=== PATIENT | female | born 1970 ===

== ENCOUNTER 2019-01-16 07:56 | Day surgery (SDC) | payer OTHER | END 2019-01-16 17:14 | disposition home or self-care (01) | LOC: CIR.AMB 07:56 | DX: S52.532A Colles' fracture of left radius, initial encounter for closed fracture (principal); T84.89XA Other specified complication of internal orthopedic prosthetic devices, implants and grafts, initial encounter; M65.842 Other synovitis and tenosynovitis, left hand ==

== ENCOUNTER 2020-01-14 07:56 | Outpatient (CLI) | payer OTHER | END 2020-01-14 08:12 | disposition home or self-care (01) | LOC: MRI 07:56 | PROVIDERS: ATTEND Otolaryngology | DX: H90.42 Sensorineural hearing loss, unilateral, left ear, with unrestricted hearing on the contralateral side (principal) | CPT/HCPCS: 70553 ==

== ENCOUNTER 2020-09-08 07:26 | Outpatient (CLI) | payer OTHER | END 2020-09-08 07:28 | disposition home or self-care (01) | LOC: SONOGRAMA 07:26 | PROVIDERS: ATTEND Specialist | DX: Q44.6 Cystic disease of liver (principal); N20.0 Calculus of kidney ==

== ENCOUNTER 2020-09-08 09:40 | Outpatient (CLI) | payer OTHER | END 2020-09-08 09:51 | disposition home or self-care (01) | LOC: LAB 09:40 | PROVIDERS: ATTEND Specialist | DX: N95.1 Menopausal and female climacteric states (principal); C54.1 Malignant neoplasm of endometrium ==

== ENCOUNTER 2020-10-07 07:07 | Outpatient (CLI) | payer OTHER | END 2020-10-07 15:00 | disposition home or self-care (01) | LOC: LAB 07:07 | PROVIDERS: ATTEND Specialist | DX: I27.89 Other specified pulmonary heart diseases (principal); D69.3 Immune thrombocytopenic purpura; D68.8 Other specified coagulation defects; N39.0 Urinary tract infection, site not specified; K76.89 Other specified diseases of liver; N91.2 Amenorrhea, unspecified; I10 Essential (primary) hypertension; D69.49 Other primary thrombocytopenia ==

== ENCOUNTER 2020-10-08 07:43 | Outpatient (CLI) | payer OTHER | END 2020-10-08 07:49 | disposition home or self-care (01) | LOC: LAB 07:43 | PROVIDERS: ATTEND Specialist | DX: Z20.828 Contact with and (suspected) exposure to other viral communicable diseases (principal) ==

== ENCOUNTER 2020-10-13 09:45 | Inpatient (IN) | payer OTHER ==
[~2020-10-13] VITALS: Ht 182.9 cm; Wt 68.9 kg
== END 2020-10-18 13:04 | disposition home or self-care (01) | DRG 743 ==
LOC: OB/GYN 10-15 05:40 → O/R 10-15 05:40 → SURH 10-15 08:00 → OB/GYN 10-15 11:51
PROVIDERS: ADMIT Specialist; ATTEND Specialist
PROC: 0UB70ZZ Excision of Bilateral Fallopian Tubes, Open Approach (ICD-10-PCS; 2020-10-15)
PROC: 0UQF7ZZ Repair Cul-de-sac, Via Natural or Artificial Opening (ICD-10-PCS; 2020-10-15)
PROC: 0UT90ZZ Resection of Uterus, Open Approach (ICD-10-PCS; principal; 2020-10-15 08:00)
DX: D25.2 Subserosal leiomyoma of uterus (principal); N88.8 Other specified noninflammatory disorders of cervix uteri; N83.8 Other noninflammatory disorders of ovary, fallopian tube and broad ligament; N99.3 Prolapse of vaginal vault after hysterectomy

== ENCOUNTER 2020-10-14 09:55 | Outpatient (CLI) | payer OTHER | END 2020-10-14 10:05 | disposition home or self-care (01) | LOC: RAD 09:55 | PROVIDERS: ATTEND Specialist | DX: R10.84 Generalized abdominal pain (principal); R10.83 Colic ==

== ENCOUNTER 2020-12-31 09:56 | Outpatient (CLI) | payer OTHER | END 2020-12-31 10:11 | disposition home or self-care (01) | LOC: MAMO-SONO 09:56 | PROVIDERS: ATTEND Specialist | DX: N63.11 Unspecified lump in the right breast, upper outer quadrant (principal) ==